=== PATIENT | male | born 1975 | race Caucasian/White ===

== ENCOUNTER 2021-10-20 23:20 | Emergency (ER) | payer SELFPAY ==
[2021-10-20] MEDS ORDERED: Doxycycline 100 MG Cap PO ONE (23:52)
== END 2021-10-21 00:09 | disposition home or self-care (01) ==
LOC: JD.ED 23:20
DX: S10.96XA Insect bite of unspecified part of neck, initial encounter (principal); L08.9 Local infection of the skin and subcutaneous tissue, unspecified; W57.XXXA Bitten or stung by nonvenomous insect and other nonvenomous arthropods, initial encounter
CPT/HCPCS: 99283; A9270; 99282